=== PATIENT | female | born 1960 | race Caucasian/White ===

== ENCOUNTER 2017-07-24 09:42 | Day surgery (SDC) | payer OTHER ==
[~2017-07-24] VITALS: Ht 160 cm; Wt 56.8 kg
[2017-07-24] MEDS ORDERED: LACTATED RINGERS 1,000 ML IV SCH (10:12)
[2017-07-24] MEDS ORDERED: LISI40TA PO (10:31)
[2017-07-24] MEDS ORDERED: METO50TA82 PO (10:31)
[2017-07-24] MEDS ORDERED: HYDR12.58 PO (10:31)
[2017-07-24] MEDS ORDERED: SIMV40TA3 PO (10:31)
[2017-07-24 10:48] VITALS: BP 112/79
[2017-07-24] MEDS ORDERED: PROPOFOL 10 MG/ML, 20ML ONE (11:32)
[2017-07-24] MEDS ORDERED: ROCURONIUM 10 MG/ML,10ML ONE (11:32)
[2017-07-24] MEDS ORDERED: SODIUM CHLORIDE 0.9% PF 10ML ONE (11:33)
[2017-07-24] MEDS ORDERED: CEFAZOLIN 1,000 MG ONE ×2 (11:33)
[2017-07-24] MEDS ORDERED: NEOSTIGMINE 1 MG/ML, 10ML ONE (11:34)
[2017-07-24] MEDS ORDERED: FENTANYL PF 100 MCG/2ML ONE ×2 (11:38→12:37)
[2017-07-24] MEDS ORDERED: VANCOMYCIN 1,000 MG ONE (11:46)
[2017-07-24] MEDS ORDERED: BUPIVACAINE/PF 0.5% ONE (11:46)
[2017-07-24] MEDS ORDERED: MIDAZOLAM 1 MG/ML, 2ML ONE (12:04)
[2017-07-24] MEDS ORDERED: DEXAMETHASONE 4 MG/ML, 1ML ONE ×2 (12:23)
[2017-07-24] MEDS ORDERED: ONDANSETRON 2MG/ML, 2ML ONE (12:23)
[2017-07-24] MEDS ORDERED: PROMETHAZINE 12.5 MG SUPP PR PRN (12:30)
[2017-07-24] MEDS ORDERED: hydrALAzine 20 MG/ML, 1ML IV PRN (12:30)
[2017-07-24] MEDS ORDERED: ACETAMINOPHEN 325 MG TABLET PO PRN (12:30)
[2017-07-24] MEDS ORDERED: MEPERIDINE/PF 25MG/0.5ML IVPush PRN (12:30)
[2017-07-24] MEDS ORDERED: OXYcodone 5 MG/5 ML ORAL.SOL UDC PO PRN ×2 (12:30→17:30)
[2017-07-24] MEDS ORDERED: LABETALOL 5MG/ML, 20ML IV PRN (12:30)
[2017-07-24] MEDS ORDERED: ONDANSETRON 2MG/ML, 2ML IVPush PRN (12:30)
[2017-07-24] MEDS ORDERED: FENTANYL PF 100 MCG/2ML IV PRN (12:30)
[2017-07-24] MEDS ORDERED: HYDROmorphone 1 MG/ML, 1ML IV PRN (12:30)
[2017-07-24] MEDS ORDERED: EPINEPHRINE 1 MG/ML, 1ML INFIL ONE ×2 (12:52→13:04)
[2017-07-24] MEDS ORDERED: PHENYLEPHRINE 10 MG/ML ONE (13:29)
[2017-07-24] MEDS ORDERED: OMNIPAQUE 180 MG/ML, 20ML VIAL ONE (14:02)
[2017-07-24] MEDS ORDERED: ACETAMINOPHEN 650 MG/20.3 ML UDC ONE (14:13)
[2017-07-24] MEDS ORDERED: OXYcodone 5 MG/5 ML ORAL.SOL UDC ONE ×2 (14:13→17:06)
== END 2017-07-24 17:20 ==
LOC: OUT 09:42 → EDSTATUS 12:15 → EDBD 12:15 → OUT 17:20
PROVIDERS: ATTEND Neurological Surgery
DX: M48.56XA Collapsed vertebra, not elsewhere classified, lumbar region, initial encounter for fracture (principal); M40.205 Unspecified kyphosis, thoracolumbar region; Z72.89 Other problems related to lifestyle; I10 Essential (primary) hypertension
CPT/HCPCS: 22514; 72100; 88307; 88311; J0171; J0690; J1100; J2250; J2370; J2405; J2704; J2710; J3010; J3490; J7120; Q9965; C1713; J3370